=== PATIENT | female | born 1995 | race Caucasian/White ===

== ENCOUNTER 2020-04-27 22:00 | Observation (INO) | payer OTHER, SELFPAY ==
[2020-04-27 22:30] VITALS: BMI 19.5
[2020-04-27 22:36] VITALS: BP 106/63; PULSE 68
[2020-04-27 22:47] VITALS: TEMP 37.1
[2020-04-27 23:28] LABS: Add Urine Microscopic? YES; Appearance Urine Clear (Clear); Bacteria Urine Trace /hpf; Bilirubin Urine Negative (Negative); Blood Urine Negative (Negative); Color Urine Yellow (Yellow); Glucose Urine UA Negative (Negative); Ketones Urine Negative (Negative); Leukocyte Esterase Ur 1+ LEU/UL (NEGATIVE); Mucus Urine Rare /lpf; Nitrate Urine Negative (Negative); Protein Urine Negative (Negative); Specific Grav Ur 1.019 (1.001-1.035); Squamous Epithelial Cell Urine Many /hpf (Few); Urobilinogen Urine Negative mg/dL (<2.0)
--- NOTE | 2020-04-28 00:09 | OBADM ---
This patient, Chhaya Freeman, admitted to the OB room OB Post 117 for observation. Patient/family oriented to hospital policies and general routines including ID bracelet, bed and alarms, visiting hours, pain management, procedures, bathroom and other care routines, personal items, smoking policy, room service/diet, and visiting hours. Patient/Family are encouraged to report perceived risks to care and to ask questions if they do not understand what they are told or what they should do.
--- NOTE | 2020-05-09 08:20 | PM.OBTRLD ---
OB - Triage/Final Diagnosis Visit Information Reason for evaluation: threatened labor Evaluation Laboratory results: Laboratory Tests 04/27/20 23:18 Urine Color Yellow Urine Appearance Clear Urine pH 7.0 Ur Specific [place] 1.019 Urine Protein Negative Urine Glucose (UA) Negative Urine Ketones Negative Ur Blood (Man) Negative Urine Nitrate Negative Urine Bilirubin Negative Urine Urobilinogen Negative Ur Leukocyte Esterase 1+ H Urine RBC 3-5 H Urine WBC 10-15 H Ur Squamous Epith Cells Many H Urine Bacteria Trace Hyaline Casts 3-4 H Urine Mucus Rare
== END 2020-04-27 23:15 | disposition home or self-care (01) ==
PROVIDERS: Admitting Provider Obstetrics & Gynecology; PCP Physician Assistant; Visit Provider Obstetrics & Gynecology
DX: O47.9 False labor, unspecified (principal); Z3A.00 Weeks of gestation of pregnancy not specified
CPT/HCPCS: 81001; 87077; 87086; 87088; G0378; G0379

== ENCOUNTER 2020-04-29 10:21 | Observation (INO) | payer OTHER, SELFPAY ==
--- NOTE | 2020-04-29 10:21 | OBADM ---
This patient, Chhaya Freeman, admitted to the OB room OB Post 115 for observation. Patient/family oriented to hospital policies and general routines including ID bracelet, bed and alarms, visiting hours, pain management, procedures, bathroom and other care routines, personal items, smoking policy, room service/diet, and visiting hours. Patient/Family are encouraged to report perceived risks to care and to ask questions if they do not understand what they are told or what they should do.
[2020-04-29 10:45] VITALS: BP 107/66; PULSE 79
[2020-04-29 11:00] VITALS: BP 96/58; PULSE 72
[2020-04-29 11:15] VITALS: BP 96/53; PULSE 75
[2020-04-29 11:30] VITALS: BP 116/60; PULSE 89
[2020-04-29 11:45] VITALS: BP 94/56; PULSE 74
[2020-04-29 12:43] VITALS: BMI 19.7
--- NOTE | 2020-05-09 08:18 | PM.OBTRLD ---
OB - Triage/Final Diagnosis Visit Information Reason for evaluation: threatened labor
== END 2020-04-29 12:05 | disposition home or self-care (01) ==
PROVIDERS: Admitting Provider Obstetrics & Gynecology; PCP Physician Assistant; Visit Provider Obstetrics & Gynecology
DX: O47.9 False labor, unspecified (principal); Z3A.00 Weeks of gestation of pregnancy not specified
CPT/HCPCS: G0378; G0379

== ENCOUNTER 2020-05-19 08:32 | Outpatient (RCR) | payer OTHER, SELFPAY ==
[2020-05-19 09:57] LABS: Hematocrit 31.2 % (37.0-47.0); Hemoglobin 10.8 g/dL (12.0-15.0)
[2020-05-19 10:11] LABS: Glucose 1 Hour PP 50gm Dose 63 mg/dL
[2020-05-19 10:52] LABS: HIV 1/2 Ab P24 Ag Result Negative (Negative)
[2020-05-19] MEDS: RHO(D) IMMUNE GLOBULIN 300 MCG SYRINGE IM (13:26)
[2020-05-21 07:34] LABS: CMV IgG Antibody <0.60 U/mL (<0.60)
== END 2020-08-17 23:59 | disposition home or self-care (01) ==
LOC: ANHLAB 08:32
PROVIDERS: PCP Physician Assistant; Visit Provider Obstetrics & Gynecology
DX: Z29.13 Encounter for prophylactic Rho(D) immune globulin (principal); Z11.4 Encounter for screening for human immunodeficiency virus [HIV]; O36.0990 Maternal care for other rhesus isoimmunization, unspecified trimester, not applicable or unspecified; Z3A.00 Weeks of gestation of pregnancy not specified
CPT/HCPCS: 36415; 82947; 85014; 85018; 85461; 86644; 86703; 86747; 90384; 96372; G0432; J2790

== ENCOUNTER 2020-05-27 18:02 | Observation (INO) | payer OTHER, SELFPAY ==
[2020-05-27 18:24] VITALS: BP 96/59; PULSE 74
[2020-05-27 18:58] LABS: Add Urine Microscopic? YES; Appearance Urine Clear (Clear); Bacteria Urine Trace /hpf; Bilirubin Urine Negative (Negative); Blood Urine Negative (Negative); Color Urine Yellow (Yellow); Glucose Urine UA Negative (Negative); Ketones Urine Negative (Negative); Leukocyte Esterase Ur Trace LEU/UL (Negative); Mucus Urine Rare /lpf; Nitrate Urine Negative (Negative); Protein Urine Negative (Negative); RBC Urine 0-2 /hpf (0-2); Specific Grav Ur 1.013 (1.001-1.035); Squamous Epithelial Cell Urine Few /hpf (Few); Urobilinogen Urine Negative mg/dL (<2.0)
[2020-05-27] MEDS: ACETAMINOPHEN 500 MG TABLET 1000 MG PO (20:28)
[2020-05-27] MEDS: TERBUTALINE SULFATE 1 MG/ML VIAL 0.25 MG SUB-Q (21:07)
[2020-05-27 23:32] VITALS: BMI 19.9
--- NOTE | 2020-06-03 11:13 | PM.OBTRLD ---
OB - Triage/Final Diagnosis Evaluation Laboratory results: Laboratory Tests 05/27/20 18:41 Urine Color Yellow Urine Appearance Clear Urine pH 6.0 Ur Specific [place] 1.013 Urine Protein Negative Urine Glucose (UA) Negative Urine Ketones Negative Ur Blood (Man) Negative Urine Nitrate Negative Urine Bilirubin Negative Urine Urobilinogen Negative Leukocyte Esterase Rfl Trace H Urine RBC 0-2 Urine WBC 4-6 H Ur Squamous Epith Cells Few Urine Bacteria Trace Urine Mucus Rare Final Diagnosis (1) contractions: Code(s): O47.9 - False labor, unspecified Status: Acute Plan: Pt was noted to have contractions; given PO hydration initially but they continued and was given one dose of Terbutaline sq and the contractions stopped. heart tones were reassuring and pt denied pain and was d/c'ed home.
== END 2020-05-27 23:15 | disposition home or self-care (01) ==
PROVIDERS: Admitting Provider Obstetrics & Gynecology; PCP Physician Assistant; Visit Provider Obstetrics & Gynecology
DX: O47.03 False labor before 37 completed weeks of gestation, third trimester (principal); Z3A.29 29 weeks gestation of pregnancy
CPT/HCPCS: 81001; 96372; A9270; G0378; G0379; J3105

== ENCOUNTER 2020-06-04 12:07 | Outpatient (RCR) | payer OTHER, SELFPAY ==
[2020-06-04 13:21] VITALS: BP 102/59; PULSE 92
== END 2020-07-30 07:54 | disposition home or self-care (01) ==
LOC: ANHOBOP 12:07
PROVIDERS: PCP Physician Assistant; Visit Provider Obstetrics & Gynecology
DX: O99.89 Other specified diseases and conditions complicating pregnancy, childbirth and the puerperium (principal); T14.90XD Injury, unspecified, subsequent encounter; Z3A.30 30 weeks gestation of pregnancy; W19.XXXD Unspecified fall, subsequent encounter
CPT/HCPCS: 59025

== ENCOUNTER 2020-07-03 17:11 | Observation (INO) | payer OTHER, SELFPAY ==
[2020-07-03 17:41] VITALS: BMI 20.5
--- NOTE | 2020-07-03 17:43 | LDADM ---
This patient, Chhaya Freeman, was admitted to OB Post 115 on 07/03/20 at 17:11. Plans for labor, pain management and were discussed with patient. Patient/family oriented to hospital policies and general routines including ID bracelet, bed and alarms, visiting hours, pain management, procedures, bathroom and other care routines, personal items, smoking policy, room service/diet and guest tray routines, security routines, and visiting hours. Patient/Family are encouraged to report perceived risks to care and to ask questions if they do not understand what they are told or what they should do. See OBIX for further documentation.
[2020-07-03 17:48] VITALS: BP 109/72; PULSE 78
[2020-07-03 17:59] LABS: Add Urine Microscopic? YES; Appearance Urine Cloudy (Clear); Bacteria Urine Trace /hpf; Bilirubin Urine Negative (Negative); Blood Urine Negative (Negative); Color Urine Yellow (Yellow); Glucose Urine UA Negative (Negative); Ketones Urine Negative (Negative); Leukocyte Esterase Ur 2+ LEU/UL (Negative); Mucus Urine Rare /lpf; Nitrate Urine Negative (Negative); Protein Urine 1+ mg/dL (Negative); Specific Grav Ur 1.017 (1.001-1.035); Squamous Epithelial Cell Urine Few /hpf (Few); Urobilinogen Urine Negative mg/dL (<2.0); WBC Urine 51-75 /hpf
[2020-07-03 18:01] VITALS: BP 111/55; PULSE 86
[2020-07-03 18:16] VITALS: BP 94/73
[2020-07-03 18:30] VITALS: BP 112/82; PULSE 87
--- NOTE | 2020-07-05 08:42 | PM.OBTRLD ---
OB - Triage/Final Diagnosis Visit Information Reason for evaluation: threatened labor and other (urinary tract infection) Evaluation Laboratory results: Laboratory Tests 07/03/20 17:35 Urine Color Yellow Urine Appearance Cloudy H Urine pH 6.0 Ur Specific [place] 1.017 Urine Protein 1+ H Urine Glucose (UA) Negative Urine Ketones Negative Ur Blood (Man) Negative Urine Nitrate Negative Urine Bilirubin Negative Urine Urobilinogen Negative Leukocyte Esterase Rfl 2+ H Urine RBC 3-5 H Urine WBC 51-75 H Ur Squamous Epith Cells Few Urine Bacteria Trace Urine Mucus Rare
== END 2020-07-03 18:45 | disposition home or self-care (01) ==
PROVIDERS: Admitting Provider Obstetrics & Gynecology; PCP Physician Assistant; Visit Provider Obstetrics & Gynecology
DX: O47.9 False labor, unspecified (principal); O23.40 Unspecified infection of urinary tract in pregnancy, unspecified trimester; Z3A.00 Weeks of gestation of pregnancy not specified
CPT/HCPCS: 81001; 87086; G0378; G0379

== ENCOUNTER 2020-07-04 03:55 | Observation (INO) | payer OTHER, SELFPAY ==
[2020-07-04 04:00] VITALS: BMI 20.7
[2020-07-04] MEDS: DEXTROSE 5%/LACTATED RINGERS 1,000 ML 125 ML IV CONT (05:39)
[2020-07-04] MEDS: TERBUTALINE SULFATE 1 MG/ML VIAL 0.25 MG SUB-Q (05:40)
--- NOTE | 2020-07-04 07:19 | PM.OBTRLD ---
OB - Triage/Final Diagnosis Visit Information Reason for evaluation: threatened labor and other (UTI)
== END 2020-07-04 10:30 | disposition home or self-care (01) ==
PROVIDERS: Admitting Provider Obstetrics & Gynecology; PCP Physician Assistant; Visit Provider Obstetrics & Gynecology
DX: O47.9 False labor, unspecified (principal); O23.40 Unspecified infection of urinary tract in pregnancy, unspecified trimester; Z3A.00 Weeks of gestation of pregnancy not specified
CPT/HCPCS: 96361; 96372; 96374; G0378; G0379; J0690; J3105; J7121

== ENCOUNTER 2020-07-14 13:54 | Outpatient (CLI) | payer OTHER, SELFPAY ==
--- NOTE | ~2020-07-14 | US_ITS ---
EXAMINATION: US OB follow up DATE: 07/14/2020 14:40 INDICATION: Third trimester . Assess size and dating of . TECHNIQUE: Real-time ultrasound of the pelvis was performed. The interpreting radiologist was not pre sent for the study. COMPARISON: None. FINDINGS: There is a single living fetus in vertex presentation. The placenta is anterior. heart rate is 135 beats per minute (bpm). The amniotic fluid index is 15.6 cm, which is normal (5th%-95%: 7.7-24. 9 cm at 36 weeks estimated gestational age). The following biometric data were obtained: BPD: 8.9 cm -> 36 weeks 1 days Head circumference: 31.7 cm -> 35 weeks 4 days Abdominal circumference: 32.2 cm -> 36 weeks 1 days Femur length: 6.6 cm -> 34 weeks 1 days These measurements are concordant. Head circumference to abdominal circumference ratio: 0.99 (normal range 0.93-1.09). Estimated weight: 2705 g (+/-) 406 g. or 5 lbs. 15 oz. (+/-) 14 oz. IMPRESSION: 1. Single living fetus in vertex presentation with heart rate of 135 bpm. 2. Gestational age by ultrasound of 35 weeks 4 day(s) +/- 2 week(s) 3 day(s) with ultrasound estimate d date of delivery (VALARIE) of 08/14/2020. Estimated weight is 32nd percentile by Hadlock criteria when 08/09/2020 is used as the VALARIE. Please correlate with clinical information or earlier ultrasound s for most accurate VALARIE. 3. Normal amniotic fluid index of 15.6 cm. Reviewed, dictated and finalized at location A. IMPRESSION: 1. Single living fetus in vertex presentation with heart rate of 135 bpm. 2. Gestational age by ultrasound of 35 weeks 4 day(s) +/- 2 week(s) 3 day(s) wi th ultrasound estimated date of delivery (VALARIE) of 08/14/2020. Estimated w eight is 32nd percentile by Hadlock criteria when 08/09/2020 is used as the VALARIE . Please correlate with clinical information or earlier ultrasounds for most ac curate VALARIE. 3. Normal amniotic fluid index of 15.6 cm.
== END 2020-07-14 13:55 | disposition home or self-care (01) ==
PROVIDERS: PCP Physician Assistant; Visit Provider Obstetrics & Gynecology
DX: Z36.9 Encounter for antenatal screening, unspecified (principal); Z3A.35 35 weeks gestation of pregnancy
CPT/HCPCS: 76816

== ENCOUNTER 2020-07-20 06:23 | Observation (INO) | payer OTHER, SELFPAY ==
--- NOTE | 2020-07-20 06:23 | OBADM ---
This patient, Chhaya Freeman, admitted to the OB room Labor/Delivery/Recovery 104 for observation. Patient/family oriented to hospital policies and general routines including ID bracelet, bed and alarms, visiting hours, pain management, procedures, bathroom and other care routines, personal items, smoking policy, room service/diet, and visiting hours. Patient/Family are encouraged to report perceived risks to care and to ask questions if they do not understand what they are told or what they should do.
[2020-07-20 06:40] VITALS: TEMP 36.9
[2020-07-20 07:00] VITALS: BMI 20.9
[2020-07-20] MEDS: ONDANSETRON HCL ODT 4 MG TABLET PO (08:13)
--- NOTE | 2020-07-22 11:51 | PM.OBTRLD ---
OB - Triage/Final Diagnosis Final Diagnosis (1) False labor: Code(s): O47.9 - False labor, unspecified Status: Acute
== END 2020-07-20 08:15 | disposition home or self-care (01) ==
PROVIDERS: Admitting Provider Obstetrics & Gynecology; PCP Physician Assistant; Visit Provider Obstetrics & Gynecology
DX: O47.9 False labor, unspecified (principal); Z3A.00 Weeks of gestation of pregnancy not specified
CPT/HCPCS: 84112; A9270; G0378; G0379

== ENCOUNTER 2020-07-23 19:24 | Observation (INO) | payer OTHER, SELFPAY ==
--- NOTE | 2020-07-24 08:32 | PM.OBTRLD ---
OB - Triage/Final Diagnosis Final Diagnosis (1) False labor: Code(s): O47.9 - False labor, unspecified Status: Acute
== END 2020-07-23 22:55 | disposition home or self-care (01) ==
PROVIDERS: Admitting Provider Obstetrics & Gynecology; PCP Physician Assistant; Visit Provider Obstetrics & Gynecology
DX: O47.9 False labor, unspecified (principal); Z3A.00 Weeks of gestation of pregnancy not specified
CPT/HCPCS: G0378; G0379

== ENCOUNTER 2020-07-24 11:52 | Observation (INO) | payer OTHER, SELFPAY ==
[2020-07-24 13:27] VITALS: BP 100/67; PULSE 88; RESP 16; TEMP 36.6
--- NOTE | 2020-07-24 13:34 | PM.OBTRLD ---
OB - Triage/Final Diagnosis Final Diagnosis (1) False labor: Code(s): O47.9 - False labor, unspecified Status: Acute
[2020-07-24 15:34] VITALS: BMI 20.7
== END 2020-07-24 13:44 | disposition home or self-care (01) ==
LOC: ANHLDR 07-28 14:58
PROVIDERS: Admitting Provider Obstetrics & Gynecology; PCP Physician Assistant; Visit Provider Obstetrics & Gynecology
DX: O47.1 False labor at or after 37 completed weeks of gestation (principal); Z3A.37 37 weeks gestation of pregnancy
CPT/HCPCS: G0378; G0379

== ENCOUNTER 2020-07-29 11:30 | Outpatient (CLI) | payer OTHER, SELFPAY ==
--- NOTE | 2020-07-29 11:30 | PC.NURSE ---
Pt came in for possible leaking of fluid. Pt states she was 3cm in the office yesterday.
[2020-07-29 12:45] VITALS: BP 109/59; PULSE 92
--- NOTE | 2020-07-29 12:51 | PC.NURSE ---
5444- called,informed pt came in for possible leaking fluid. ROM plus negative, NST reactive. Orders received to discharge pt home
== END 2020-07-29 12:47 | disposition home or self-care (01) ==
LOC: ANHOBOP 12:34 → ANHLDR 12:35
PROVIDERS: PCP Physician Assistant; Visit Provider Obstetrics & Gynecology
DX: Z34.93 Encounter for supervision of normal pregnancy, unspecified, third trimester (principal); Z3A.38 38 weeks gestation of pregnancy
CPT/HCPCS: 59025; 84112; 99199

== ENCOUNTER 2020-07-29 18:29 | Inpatient (IN) | payer OTHER, SELFPAY ==
[2020-07-29] VITALS (92 sets, daily range): BP systolic 87–127; BP diastolic 45–83; PULSE 47–212; TEMP 36.8–36.9; O2SAT 87–100; BMI 21.0
[2020-07-29] MEDS: LACTATED RINGERS 1,000 ML 125 ML IV CONT ×2 (19:15→19:53)
[2020-07-29 19:16] LABS: Basophils Absolute Auto 0.1 K/mm3 (0.0-0.1); Basophils Percent Auto 0.4 % (0.2-1.2); Eosinophils Absolute Auto 0.1 K/mm3 (0-0.3); Eosinophils Percent Auto 0.4 % (0-4.4); Hematocrit 39.5 % (37.0-47.0); Hemoglobin 13.4 g/dL (12.0-15.0); Immature Granulocyte Percent A 0.7 % (0-0.5); Lymphocytes Absolute Auto 1.99 K/mm3 (0.9-3.2); Lymphocytes Percent Auto 14.8 % (18.3-44.2); Mean Corpuscular HGB Conc 33.9 g/dl (32-36); Mean Corpuscular Hemoglobin 30.3 pg (26-34); Mean Corpuscular Volume 89.4 fl (80-100); Mean Platelet Volume 12.8 fl (7.4-10.4); Monocytes Absolute Auto 0.8 K/mm3 (0.1-0.6); Neutrophils Absolute Auto 10.5 K/mm3 (1.3-6.7); Neutrophils Percent Auto 77.7 % (45.5-73.1); Platelet Count Result 204 k/mm3 (150-375); Red Blood Count 4.42 M/mm3 (4.2-5.4); Red Cell Distribution Width 12.5 % (11.5-14.5); White Blood Count 13.5 K/mm3 (4.5-10.0)
--- NOTE | 2020-07-29 19:42 | P.PNAN_ITS ---
Anes - Initial Pre Proc Eval Procedure: labor epidural Date/Time: 07/29/20 19:42 Surgeon: Brandon Garcia MD Pre Op Diagnosis: labor pain Pre Op Diagnosis: Contractions Patient Data Age: 25 Gender: F Height: 1.6 m Weight: 54 kg Last Vital Signs Pulse 65 07/29/20 19:41 BP 100/58 L 07/29/20 19:41 Pulse Ox 100 07/29/20 19:39 Allergies Allergy/AdvReac Type Severity Reaction Status Date / Time No Known Allergies Allergy Mild Verified 07/14/20 12:42 Home Medications Medication Instructions Recorded Confirmed Type khrpucvygd-waypbvmplglyw-neut cap 07/04/20 History Gummies 2 tablet PO 07/14/20 History Laboratory Tests 07/29/20 07/29/20 19:09 19:09 WBC 13.5 K/mm3 H K/mm3 (4.5-10.0) RBC 4.42 M/mm3 M/mm3 (4.2-5.4) Hgb 13.4 g/dL g/dL (12.0-15.0) Hct 39.5 % % (37.0-47.0) MCV 89.4 fl fl (80-100) MCH 30.3 pg pg (26-34) MCHC 33.9 g/dl g/dl (32-36) RDW 12.5 % % (11.5-14.5) Plt Count 204 k/mm3 k/mm3 (150-375) MPV 12.8 fl H fl (7.4-10.4) Immature Gran % (Auto) 0.7 % H % (0-0.5) Neut % (Auto) 77.7 % H % (45.5-73.1) Lymph % (Auto) 14.8 % L % (18.3-44.2) [place] % (Auto) 6.0 % % (2.6-8.5) Eos % (Auto) 0.4 % % (0-4.4) Baso % (Auto) 0.4 % % (0.2-1.2) Lymph # (Auto) 1.99 K/mm3 K/mm3 (0.9-3.2) [place] # (Auto) 0.8 K/mm3 H K/mm3 (0.1-0.6) Eos # (Auto) 0.1 K/mm3 K/mm3 (0-0.3) Baso # (Auto) 0.1 K/mm3 K/mm3 (0.0-0.1) Abs Immat Gran (auto) 0.10 K/mm3 H K/mm3 (0.00-0.031) Absolute Neuts (auto) 10.5 K/mm3 H K/mm3 (1.3-6.7) Absolute Nucleated RBC 0.0 K/mm3 K/mm3 (0.0-0.012) Nucleated RBC % 0.0 % % (0.0-0.2) RPR Pending Patient hx anesthesia problems: none Family hx anesthesia problems: none [facility] Past Medical History Medical History (Updated 07/29/20 @ 19:42 by Jhonathan White DO) ADHD Bipolar disorder OCD (obsessive compulsive disorder) Family History Family History (Updated 07/14/20 @ 12:59 by Kelsi Santiago RN) Sibling Autism disorder Duplication of chromosome 16p Social History Social History Substance use: never Spiritual care concerns: No Anes - Eval Final PreProcedure Day of Procedure 07/29/20 19:42 Patient weight: normal ASA classification: II Anesthesia type and monitoring: regional epidural Informed Consent: The patient's anesthetic plan and its attendant risks and benefits were discussed with the patient/family/POA. Questions were solicited and answers provided to the satisfaction of the patient/family/POA.
[2020-07-29] MEDS: FAMOTIDINE 20 MG/2 ML VIAL IV PUSH (21:58)
[2020-07-29] MEDS: ONDANSETRON INJ 4 MG/2 ML VIAL IV PUSH (22:24)
[2020-07-30] VITALS (52 sets, daily range): BP systolic 93–126; BP diastolic 56–98; PULSE 51–132; RESP 16–18; TEMP 36.3–37.3; O2SAT 89–100
[2020-07-30] MEDS: LACTATED RINGERS 1,000 ML 125 ML IV CONT (00:10)
[2020-07-30] MEDS: OXYTOCIN 30 UNITS/NS 500 ML 30 UNITS/500 ML BAG 999 UNITS IV CONT (02:32)
--- NOTE | 2020-07-30 02:43 | PM.OBPRVD ---
OB - Delivery Note Procedure Route of delivery: Laceration description: Vaginal - 1st Degree Delivery repair: chromic Specimen: No Estimated blood loss (mL): 300 Anesthesia type: Epidural Disposition: floor Narrative: Patient prepped and draped in usual manner for this procedure. Maternal expulsive efforts readily delivered vertex with the rest of the baby readily delivery after. Cord is clamped and cut and placenta delivered spontaneously with uterus well contracted. Small vaginal wall laceration was noted which was rendered hemostatic and approximated using 2 0 chromic [id number] suture. This point seizure was considered terminated with immediate postop condition of mother and baby both excellent. Baby Weeks of gestation at delivery: 38 Infant gender: Male Weight (pounds): 6 Weight (ounces): 10 score one minute: 8 score five minutes: 9
--- NOTE | 2020-07-30 02:45 | WPDHPUPDATE1 ---
History and Physical Update Update Date/Time: 07/30/20 02:45 History and Physical has been reviewed, including an updated exam of the patient. There are NO changes in the patient's condition. Risks, benefits, and alternatives have been discussed and questions answered. Patient agrees to proceed with procedure.
--- NOTE | 2020-07-30 02:45 | WPDOBADMIT ---
Obstetrics - Admit Note Admission Note: record reviewed. No pertinent additions to the history and/or any subsequent changes in the physical findings that are not consistent with the expected course of the were found. Additions to the history and/or subsequent changes in the physical findings follow. None.
[2020-07-30] MEDS: OXYTOCIN 30 UNITS/NS 500 ML 30 UNITS/500 ML BAG 125 UNITS IV CONT (03:06)
[2020-07-30] MEDS: WITCH HAZEL 40 PADS 1 PAD TOPICAL (04:45)
[2020-07-30] MEDS: BENZOCAINE 20% AER SPR (*SP) 56 GM CAN 1 SPRAY TOPICAL (04:45)
[2020-07-30] MEDS: IBUPROFEN 600 MG TABLET PO ×3 (05:06→17:58)
--- NOTE | 2020-07-30 05:42 | PC.NURSE ---
This patient, Chhaya Freeman, was received from Labor and Delivery on 07/30/20 at 0508. Personal belongings list checked and signed. Patient/family oriented to unit policies and routines
--- NOTE | 2020-07-30 07:21 | WPDANLDPN2 ---
Anes-Prog Note L&D Date/Time: 07/30/20 07:21 Comfortable throughout: labor and delivery Neuraxial method: epidural Epidural/Spinal procedure site: clean & non-tender Neuro status: Neuro function grossly intact. Cardiovascular status: normal Respiratory status: normal Airway patency: baseline Mental status: baseline Post-Op hydration status: normal Vital Signs: Last Vital Signs Temp 37.3 C 07/30/20 03:30 Pulse 54 L 07/30/20 04:31 BP 113/76 07/30/20 04:31 Pulse Ox 100 07/30/20 02:26 Pain score (VAS): 0 I/O: Intake & Output 07/29/20 07/29/20 07/30/20 15:59 23:59 07:59 Intake Total 1000 1000 Output Total 130 Balance 1000 870 Post-procedural complaints: none Patient feedback: Patient satisfied with anesthetic care.
[2020-07-30 07:24] LABS: Rapid Plasma Reagin Non-Reactive (NonReactive)
--- NOTE | 2020-07-30 07:30 | PC.NURSE ---
Consulted with patient, mother reports infant has been eagerly latching. Reviewed feeding cues, frequencies, duration of feedings, feeding elimination flow sheet, and signs of adequate intake. Demonstrated stimulation techniques to wake for feeding. Assisted with infant to breast. Reviewed positioning/alignment in cross cradle, holding breast in U hold and guided asymmetrical latch on. was able to latch correctly with first attempt. Infant nursed eagerly, with steady draws and frequent swallowing noted. Reviewed signs of a correct latch, effective nursing and suck swallow ratio. Infant was able to maintain latch without discomfort to mother. Nipple care reviewed. Suggested mother stimulate while feeding to keep awake and nursing effectively for increased intake and to assist with maintaining deep latch. Demonstrated how to adjust latch more deeply while feeding. Instructed mother to call out for RN assistance if she is unable to latch infant for feeding or she has discomfort with nursing. Instructed feeding should be initiated three hours from start of last feeding or if feeding cues are noted before. Mother voiced understanding of information shared.
--- NOTE | 2020-07-30 07:30 | PC.NURSE ---
Pt introductions made and plan of care discussed per post , pain management, breast feeding, daily care activities. PT verbalized understanding of such care.
[2020-07-30] MEDS: ACETAMINOPHEN 325 MG TABLET 650 MG PO ×3 (08:43→17:57)
[2020-07-30] MEDS: DOCUSATE SODIUM 100 MG CAPSULE PO ×2 (08:44→17:59)
[2020-07-30] MEDS: LANOLIN (LANSINOH) 7.5 GM CREAM 1 APPLIC TOPICAL (08:45)
[2020-07-30] MEDS: PANTOPRAZOLE SOD SESQUIHYDRATE 20 MG TAB PO (11:40)
[2020-07-30] MEDS: TETANUS,DIPHTHERIA,AC PERTUSSIS ADULT (0.5 ML) BOOSTRIX IM (11:59)
--- NOTE | 2020-07-30 13:31 | P.DS_ITS ---
DS: Admitting Diagnosis Admitting Diagnosis Admitting Diagnosis: Contractions OB - DS: Summary OB Procedures : None OB Procedures Intrapartum: Spontaneous Vag Delivery OB Procedures: : None Time Spent with Patient Time attestation: Total time spent providing and/or coordinating discharge services: DS: Data Data Completed and Pending Labs on day of discharge: Labs from last 24 hours 07/29/20 07/29/20 07/29/20 19:09 19:09 19:09 WBC 13.5 H RBC 4.42 Hgb 13.4 Hct 39.5 MCV 89.4 MCH 30.3 MCHC 33.9 RDW 12.5 Plt Count 204 MPV 12.8 H Immature Gran % (Auto) 0.7 H Neut % (Auto) 77.7 H Lymph % (Auto) 14.8 L [place] % (Auto) 6.0 Eos % (Auto) 0.4 Baso % (Auto) 0.4 Lymph # (Auto) 1.99 [place] # (Auto) 0.8 H Eos # (Auto) 0.1 Baso # (Auto) 0.1 Abs Immat Gran (auto) 0.10 H Absolute Neuts (auto) 10.5 H Absolute Nucleated RBC 0.0 Nucleated RBC % 0.0 RPR Non-reactive Blood Type A Negative Antibody Screen Negative Discharge Plan Discharge Discharging Clinician: Brandon Garcia Patient Disposition: Home, Self-Care Activity: as tolerated Diet: as tolerated Patient Instructions: Antibiotic Form Stand Alone Forms: General Discharge Information Follow-up/Referrals: Brandon Garcia MD [Physician] - 2 Weeks Discharge Medications: Continued Gummies 400 mcg-35 mg- 25 mg-5 mg Tablet,Chewable 2 tablet PO RF: 0 Prilosec 10 mg Susp,Delayed Release For Recon 10 mg PO DAILY RF: 0 oqcsvahsbb-pkenwtwszrajc-tojv 50-300-40 mg capsule RF: 0 Date of admission: 07/29/20 18:29 Primary Care Provider: MineshAngus Admitting Provider: Brandon Garcia Attending physician on admission: Brandon Garcia Condition: Stable
[2020-07-31] MEDS: ACETAMINOPHEN 325 MG TABLET 650 MG PO (01:30)
[2020-07-31] MEDS: IBUPROFEN 600 MG TABLET PO ×2 (01:30→08:00)
[2020-07-31 06:02] LABS: Hematocrit 29.8 % (37.0-47.0); Hemoglobin 9.6 g/dL (12.0-15.0)
[2020-07-31 07:55] VITALS: BP 122/73; PULSE 52; RESP 16; TEMP 36.3; O2SAT 100
[2020-07-31] MEDS: DOCUSATE SODIUM 100 MG CAPSULE PO (07:59)
[2020-07-31] MEDS: PANTOPRAZOLE SOD SESQUIHYDRATE 20 MG TAB PO (08:00)
[2020-07-31] MEDS: POLYSACCHARIDE IRON COMPLEX 150 MG CAPSULE PO (08:00)
[2020-07-31 08:30] VITALS: PULSE 52; RESP 16; O2SAT 100
--- NOTE | 2020-07-31 10:47 | PC.NURSE ---
Patient viewed the discharge video Mother & Baby Care, The First Two Weeks . Patient was given the opportunity and encouraged to ask questions. Patient verbalized understanding of information shared and has been given the mother/baby guide for home reference.
--- NOTE | 2020-07-31 11:30 | PC.NURSE ---
Observed mother is able to independently latch with appropriate positioning/alignment. She denies any nipple discomfort, is feeding as required and waking infant to feed if needed. has had at least 8 effective feedings in the past 24 hours, and is currently meeting outcomes for weight, output, jaundice and feeding frequencies. Mother states she feels confident to continue effective at home. Mother believes her milk is transitioning in. Reviewed softening before feeding. Reviewed transition to breast milk, signs of adequate intake, and engorgement/relief. Instructed to call ICP if intake/output less than required. Reviewed regular medications mother is taking. Information provided per Vashti. Reviewed community resources on the [facility] website and in the Mom/Baby guide. Information on outpatient services provided. Mother has no further questions at this time.
[2020-08-01 12:23] VITALS: BP 93/54; PULSE 55; RESP 14; TEMP 37.1; O2SAT 100
--- NOTE | 2020-08-04 07:11 | PM.OBDSVD ---
DS: Admitting Diagnosis Admitting Diagnosis Admitting Diagnosis: Contractions OB - DS: Summary OB Procedures : None OB Procedures Intrapartum: Spontaneous Vag Delivery OB Procedures: : None Time Spent with Patient Time attestation: Total time spent providing and/or coordinating discharge services: Discharge Plan Discharge Consulting providers: Jhonathan White Discharging Clinician: Brandon Garcia Patient Disposition: Home, Self-Care Activity: as tolerated Diet: as tolerated Discharge Instructions: Education: Mom and Baby Guide Given to: Mother Follow-Up: Call your delivering provider's office for an appointment to be seen in: 2 Weeks Mom and baby should come to the [facility] for the follow-up appointment. Appointment Date/Time: Saturday, August 01, 2020 at 11:30 a.m. What to expect at your follow-up visit: Blood Pressure Check Physical Assessment Call [phone] if you are unable to keep your appointment time. BREAST CARE: * Wear a snug supportive bra. * For engorgement discomfort: Breast Feeding: * Apply warm moist washcloths * Express milk as needed to relieve engorgement * Wear loose clothing * For sore nipples: * Identify correct latch-on * Apply warm moist washcloths before and after nursing * Air dry nipples after nursing * May apply Lansinoh cream to nipples EPISIOTOMY/PERINEAL CARE: * Until bleeding stops, use your fanta bottle after urinating * Change your pad frequently throughout the day * You may take sitz baths several times a day (fill your bathtub with warm water and soak for 20 minutes.) Do NOT bathe in the water * No tub baths until seen by your physician - You may shower ACTIVITY: * Rest as much as possible. * Do not exercise or lift anything heavier than your baby (such as laundry or other children.) * Avoid stairs or driving as much as possible. * Do not put anything into the vagina. No douching, tampons, or sexual activity until seen by physician. NOTIFY PHYSICIAN IF YOU HAVE ANY QUESTIONS OR IF ANY OF THE FOLLOWING SYMPTOMS OCCUR: * If your perineum becomes red, swollen, or more painful than what you have experienced in the hospital. * If your vaginal bleeding becomes foul smelling. * If your vaginal bleeding becomes more heavy than a period or if your bleeding changes from pink to bright red. However, you may pass an occasional walnut-sized clot once or twice for the first week . * If you experience a sharp, shooting pain in you calves. * If you discover a hard, reddened area on your breast or if you experience flu-like symptoms. DIET: * Eat regular, well-balanced meals. * Drink plenty of fluids daily. For , drink to thirst. Stand Alone Forms: General Discharge Information Follow-up/Referrals: Brandon Garcia MD [Physician] - 2 Weeks Discharge Medications: Continued Gummies 400 mcg-35 mg- 25 mg-5 mg Tablet,Chewable 2 tablet PO RF: 0 Prilosec 10 mg Susp,Delayed Release For Recon 10 mg PO DAILY RF: 0 vftsczolch-zfrwppvepdkbm-pnau 50-300-40 mg capsule RF: 0 Date of admission: 07/29/20 18:29 Primary Care Provider: NickAngus Admitting Provider: Brandon Garcia Attending physician on admission: Brandon Garcia Condition: Stable
== END 2020-07-31 13:23 | disposition home or self-care (01) | DRG 560 ==
LOC: ANHLDR 18:59 → ANHOB2 07-30 05:29
PROVIDERS: Admitting Provider Obstetrics & Gynecology; PCP Physician Assistant; Visit Provider Obstetrics & Gynecology
DX: O99.344 Other mental disorders complicating childbirth (principal); Z37.0 Single live birth; Z3A.38 38 weeks gestation of pregnancy; F31.9 Bipolar disorder, unspecified; F98.8 Other specified behavioral and emotional disorders with onset usually occurring in childhood and adolescence; F42.9 Obsessive-compulsive disorder, unspecified; O70.0 First degree perineal laceration during delivery
CPT/HCPCS: 36415; 59025; 84112; 85014; 85018; 85025; 86592; 86850; 86900; 86901; 90715; A9270; J2405; J2590; J2795; J7120

== ENCOUNTER 2021-04-07 12:00 | Outpatient (CLI) | payer OTHER, SELFPAY ==
[2021-04-07 12:50] LABS: Hematocrit 42.9 % (37.0-47.0); Hemoglobin 14.1 g/dL (12.0-15.0); Mean Corpuscular HGB Conc 32.9 g/dl (32-36); Mean Corpuscular Hemoglobin 29.6 pg (26-34); Mean Corpuscular Volume 89.9 fl (80-100); Mean Platelet Volume 10.8 fl (7.4-10.4); Platelet Count Result 234 k/mm3 (150-375); Red Blood Count 4.77 M/mm3 (4.2-5.4); Red Cell Distribution Width 12.1 % (11.5-14.5); White Blood Count 9.6 K/mm3 (4.5-10.0)
[2021-04-07 13:42] LABS: HIV 1/2 Ab P24 Ag Result Negative (Negative)
[2021-04-07 13:58] LABS: Hepatitis B Surface Antigen Negative (Negative); Rubella IgG Antibody 18.2 IU/ML
[2021-04-08 12:44] LABS: Rapid Plasma Reagin Non-Reactive (NonReactive)
[2021-04-10 15:45] LABS: CMV IgG Antibody <0.60 U/mL (<0.60)
== END 2021-04-07 12:01 | disposition home or self-care (01) ==
LOC: ANHLAB 12:04
PROVIDERS: PCP Physician Assistant; Visit Provider Obstetrics & Gynecology
DX: N92.5 Other specified irregular menstruation (principal)
CPT/HCPCS: 36415; 84702; 85027; 86592; 86644; 86703; 86747; 86762; 86787; 86850; 86900; 86901; 87077; 87086; 87088; 87186; 87340; G0432

== ENCOUNTER 2021-07-17 12:23 | Outpatient (CLI) | payer OTHER, SELFPAY ==
--- NOTE | 2021-07-17 | ECG_ITS ---
Measurements Intervals [place] Rate: 78 P: 57 MN: 164 QRS: 69 QRSD: 97 T: 17 QT: 360 QTc: 412 Interpretive Statements SINUS RHYTHM WITH SINUS ARRHYTHMIA INCOMPLETE RIGHT BUNDLE BRANCH BLOCK BORDERLINE ECG Electronically Signed On 07-17-2021 12:53:06 CDT by Esteban Hidalgo D.O.
--- NOTE | 2021-07-17 | ECHO_ITS ---
Patient Info Name: Chhaya Freeman Age: 26 years : 1995 Gender: Female Ht: 63 in Wt: 104 lbs BSA: 1.44 m2 HR: 68 bpm BP: 88 / 59 mmHg Technical Quality: Good Exam Date: 07/17/2021 1:09 PM Exam Location: [facility] Patient Status: Outpatient Admit Date: 07/17/2021 Staff Ordering Physician: Annie Greco MD Log Handling Equipment Operator: Emilee Carreon RDCS Attending Provider: Annie Greco MD Referring Physician: Angus BURDICK; Exam Type: CA echo doppler color flow Study Info Indications - DIZZINESS Complete two-dimensional, color flow and Doppler transthoracic echocardiogram is performed. Summary 1. Complete two-dimensional, color flow and Doppler transthoracic echocardiogram is performed. 2. Left ventricular chamber dimension is normal. 3. Left ventricular systolic function is normal, estimated at 60-65%. 4. The left ventricular diastolic function is normal. 5. E/e' 6 is not elevated. 6. There is trace tricuspid valve regurgitation. 7. No pulmonary hypertension, estimated pulmonary arterial systolic pressure is 22 mmHg. Left Ventricle E/e' 6 is not elevated. Left ventricular chamber dimension is normal. Left ventricular systolic function is normal, estimated at 60-65%. The left ventricular diastolic function is normal. Right Ventricle Right ventricular chamber dimension is normal. Right ventricular systolic function is normal. Left Atria Left atrial chamber dimension is normal. Right Atria Right atrial chamber dimension is normal. Aortic Valve The aortic valve is trileaflet. There is no aortic valve stenosis. There is no aortic valve regurgitation. Pulmonic Valve There is no pulmonic regurgitation. Mitral Valve There is no mitral valve stenosis. There is no mitral valve regurgitation. Tricuspid Valve There is trace tricuspid valve regurgitation. No pulmonary hypertension, estimated pulmonary arterial systolic pressure is 22 mmHg. Pericardium/Pleural There is no pericardial effusion. Inferior Vena Cava Normal inferior vena cava with >50% collapse upon inspiration consistent with normal right atrial pressure, 5 mmHg. Aorta The aortic root size at the sinus of Valsalva is normal. Left Ventricular Outflow Tract Name Value Normal LVOT 2D LVOT Diameter 2.0 cm LVOT Doppler LVOT Peak Gradient 8 mmHg LVOT Mean Gradient 5 mmHg LVOT VTI 30 cm LVOT VTI/AV VTI Ratio 0.9 LVOT Stroke Volume 92 ml LVOT CO 18.5 l/min LVOT CI 12.8 l/min/m2 Pulmonic Valve Name Value Normal PV Doppler PV Peak Gradient 5 mmHg Mitral Valve
== END 2021-07-17 12:24 | disposition home or self-care (01) ==
PROVIDERS: PCP Physician Assistant; Visit Provider Obstetrics & Gynecology
DX: R42 Dizziness and giddiness (principal); I45.10 Unspecified right bundle-branch block
CPT/HCPCS: 93005; 93306

== ENCOUNTER 2021-09-08 21:39 | Observation (INO) | payer OTHER, SELFPAY ==
[2021-09-08 22:01] VITALS: BP 101/64; PULSE 92
[2021-09-08 22:22] LABS: Add Urine Microscopic? YES; Appearance Urine Cloudy (Clear); Bacteria Urine Trace /hpf; Bilirubin Urine Negative (Negative); Blood Urine Negative (Negative); Color Urine Yellow (Yellow); Glucose Urine UA Negative (Negative); Ketones Urine Negative (Negative); Leukocyte Esterase Ur Negative LEU/UL (NEGATIVE); Mucus Urine Rare /lpf; Nitrate Urine Negative (Negative); Protein Urine 1+ mg/dL (Negative); Specific Grav Ur 1.021 (1.001-1.035); Squamous Epithelial Cell Urine Moderate /hpf (Few); Urobilinogen Urine Negative mg/dL (<2.0)
[2021-09-08 22:30] VITALS: BMI 18.9
--- NOTE | 2021-09-08 23:37 | OBADM ---
This patient, Chhaya Cali, admitted to the OB room OB Post 116 for observation. Patient/family oriented to hospital policies and general routines including ID bracelet, bed and alarms, visiting hours, pain management, procedures, bathroom and other care routines, personal items, smoking policy, room service/diet, and visiting hours. Patient/Family are encouraged to report perceived risks to care and to ask questions if they do not understand what they are told or what they should do.
--- NOTE | 2021-09-12 08:39 | P.PNOB_ITS ---
OB - Triage/Final Diagnosis Visit Information Comments/Additional reasons for admission: I have assessed the risk for this patient, Chhaya Cali, and determined that she would benefit from observation care. Evaluation Laboratory results: Laboratory Tests 09/08/21 22:13 Urine Color Yellow Urine Appearance Cloudy H Urine pH 6.0 Ur Specific [place] 1.021 Urine Protein 1+ H Urine Glucose (UA) Negative Urine Ketones Negative Ur Blood (Man) Negative Urine Nitrate Negative Urine Bilirubin Negative Urine Urobilinogen Negative Ur Leukocyte Esterase Negative Urine RBC 6-10 H Urine WBC 4-6 H Ur Squamous Epith Cells Moderate H Urine Bacteria Trace Urine Mucus Rare Final Diagnosis (1) Pelvic pain affecting : Code(s): O26.899 - Other specified related conditions, unspecified trimester; R10.2 - Pelvic and perineal pain Status: Acute
== END 2021-09-08 23:23 | disposition home or self-care (01) ==
PROVIDERS: Admitting Provider Obstetrics & Gynecology; PCP Physician Assistant; Visit Provider Obstetrics & Gynecology
DX: O26.899 Other specified pregnancy related conditions, unspecified trimester (principal); R10.2 Pelvic and perineal pain; Z3A.00 Weeks of gestation of pregnancy not specified
CPT/HCPCS: 81001; 84112; 87086; 87088; G0378; G0379

== ENCOUNTER 2021-09-23 10:03 | Outpatient (CLI) | payer OTHER, SELFPAY ==
[2021-09-23 11:59] LABS: Hematocrit 30.7 % (37.0-47.0); Hemoglobin 10.4 g/dL (12.0-15.0); Mean Corpuscular HGB Conc 33.9 g/dl (32-36); Mean Corpuscular Hemoglobin 31.6 pg (26-34); Mean Corpuscular Volume 93.3 fl (80-100); Mean Platelet Volume 10.1 fl (7.4-10.4); Platelet Count Result 183 k/mm3 (150-375); Red Blood Count 3.29 M/mm3 (4.2-5.4); Red Cell Distribution Width 13.7 % (11.5-14.5); White Blood Count 7.7 K/mm3 (4.5-10.0)
[2021-09-23 12:17] LABS: Glucose 1 Hour PP 50gm Dose 113 mg/dL
[2021-09-23 12:59] LABS: HIV 1/2 Ab P24 Ag Result Negative (Negative)
[2021-09-23] MEDS: RHO(D) IMMUNE GLOBULIN 300 MCG/2 ML SYRINGE IM (15:48)
== END 2021-09-23 10:04 | disposition home or self-care (01) ==
PROVIDERS: PCP Physician Assistant; Visit Provider Obstetrics & Gynecology
DX: Z34.92 Encounter for supervision of normal pregnancy, unspecified, second trimester (principal); Z3A.00 Weeks of gestation of pregnancy not specified
CPT/HCPCS: 36415; 82947; 85027; 85461; 86703; 90384; 96372; G0432; J2790

== ENCOUNTER 2021-10-24 20:22 | Observation (INO) | payer OTHER, SELFPAY ==
[2021-10-24 20:22] VITALS: BMI 19.5
[2021-10-24 20:44] VITALS: BP 98/62; PULSE 96; TEMP 36.7
[2021-10-24 21:00] VITALS: BP 102/57; PULSE 87
[2021-10-24 21:15] VITALS: BP 99/57; PULSE 82
[2021-10-24 21:30] VITALS: BP 101/62; PULSE 86
[2021-10-24 21:45] VITALS: BP 102/66; PULSE 79
--- NOTE | 2021-10-27 10:00 | PM.OBTRLD ---
OB - Triage/Final Diagnosis Visit Information Reason for evaluation: threatened labor Comments/Additional reasons for admission: I have assessed the risk for this patient, Chhaya Cali, and determined that she would benefit from observation care.
== END 2021-10-24 22:05 | disposition home or self-care (01) ==
PROVIDERS: Admitting Provider Obstetrics & Gynecology; PCP Physician Assistant; Visit Provider Obstetrics & Gynecology
DX: O47.03 False labor before 37 completed weeks of gestation, third trimester (principal); Z3A.32 32 weeks gestation of pregnancy
CPT/HCPCS: G0378; G0379

== ENCOUNTER 2021-10-28 22:54 | Observation (INO) | payer OTHER, SELFPAY ==
--- NOTE | 2021-10-28 22:54 | OBADM ---
This patient, Chhaya Cali, admitted to the OB room OB Post 116 for observation. Pt states she has pelvic pressure and back pain started this AM and progressively getting more painful. PT has chronic UTI and on Macrobid. Patient/family oriented to hospital policies and general routines including ID bracelet, bed and alarms, visiting hours, pain management, procedures, bathroom and other care routines, personal items, smoking policy, room service/diet, and visiting hours. Patient/Family are encouraged to report perceived risks to care and to ask questions if they do not understand what they are told or what they should do.
[2021-10-28 23:09] VITALS: BP 96/72; PULSE 80; TEMP 37.6
[2021-10-28 23:15] VITALS: BP 92/64; PULSE 91
[2021-10-28 23:30] VITALS: BP 102/58; PULSE 94
[2021-10-28 23:30] LABS: Add Urine Microscopic? YES; Appearance Urine Clear (Clear); Bacteria Urine Trace /hpf; Bilirubin Urine Negative (Negative); Blood Urine Negative (Negative); Color Urine Yellow (Yellow); Glucose Urine UA Negative (Negative); Ketones Urine Negative (Negative); Leukocyte Esterase Ur Trace LEU/UL (NEGATIVE); Mucus Urine Rare /lpf; Nitrate Urine Negative (Negative); Protein Urine Negative (Negative); RBC Urine 0-2 /hpf (0-2); Specific Grav Ur 1.017 (1.001-1.035); Squamous Epithelial Cell Urine Many /hpf (Few); Urobilinogen Urine Negative mg/dL (<2.0); WBC Urine 0-3 /hpf (0-3)
[2021-10-28] MEDS: ACETAMINOPHEN 500 MG TABLET 1000 MG PO (23:31)
[2021-10-28 23:35] VITALS: BMI 19.5
--- NOTE | 2021-10-31 15:10 | P.PNOB_ITS ---
OB - Triage/Final Diagnosis Visit Information Reason for evaluation: threatened labor Comments/Additional reasons for admission: I have assessed the risk for this patient, Chhaya Cali, and determined that she would benefit from observation care. Evaluation Laboratory results: Laboratory Tests 10/28/21 23:11 Urine Color Yellow Urine Appearance Clear Urine pH 7.0 Ur Specific [place] 1.017 Urine Protein Negative Urine Glucose (UA) Negative Urine Ketones Negative Ur Blood (Man) Negative Urine Nitrate Negative Urine Bilirubin Negative Urine Urobilinogen Negative Ur Leukocyte Esterase Trace H Urine RBC 0-2 Urine WBC 0-3 Ur Squamous Epith Cells Many H Urine Bacteria Trace Urine Mucus Rare
== END 2021-10-29 00:07 | disposition home or self-care (01) ==
PROVIDERS: Admitting Provider Obstetrics & Gynecology; PCP Physician Assistant; Visit Provider Obstetrics & Gynecology
DX: O47.03 False labor before 37 completed weeks of gestation, third trimester (principal); Z3A.33 33 weeks gestation of pregnancy
CPT/HCPCS: 76816; 81001; 84112; 87086; A9270; G0378; G0379

== ENCOUNTER 2021-10-29 15:38 | Outpatient (CLI) | payer OTHER, SELFPAY ==
--- NOTE | ~2021-10-29 | US_ITS ---
US OB follow up DATE: 10/29/2021 16:13 INDICATION: growth assessment TECHNIQUE: Real-time imaging and Doppler analysis COMPARISON: 07/14/2020 obstetrical ultrasound FINDINGS: Live single intrauterine gestation, fetus in breech presentation, longitudinal lie. Anterior placenta. Amniotic fluid index measures 15.8 cm, within normal range. (5th percentile [place]: 8.3 cm; 95th percent ile [place]: 24.5 cm). heart rate of 108 bpm. Biparietal diameter 8.39 cm; 33 weeks 5 days Head circumference 30.88 cm; 34 weeks 3 days Abdominal circumference 26.30 cm; 30 weeks 3 days Femur length 6.51 cm; 33 weeks 4 days Composite age by Hadlock formula based upon the above measurements would be 33 weeks +/- 2 weeks 2 da ys with VALARIE of 12/17/2021 (compared to 08/14/2020 by 07/14/2020 obstetrical ultrasound). Estimated weight is 1902 +/- 2 185 g. Estimated weight GP: 9.4% Head circumference/abdominal circumference is above range of 1.17 (normal range 0.96-1.11). IMPRESSION: Abnormal head circumference/abdominal circumference ratio of 1.17; consider IUGR Reviewed, dictated and finalized at [facility]. Reviewed, dictated and finalized at location [facility]. CASER
== END 2021-10-29 15:39 | disposition home or self-care (01) ==
PROVIDERS: PCP Physician Assistant; Visit Provider Obstetrics & Gynecology
DX: O36.5999 Maternal care for other known or suspected poor fetal growth, unspecified trimester, other fetus (principal); Z3A.00 Weeks of gestation of pregnancy not specified
CPT/HCPCS: 76816

== ENCOUNTER 2021-11-15 22:24 | Observation (INO) | payer OTHER, SELFPAY ==
[2021-11-15 22:36] VITALS: BP 107/65; PULSE 86
[2021-11-15 23:45] VITALS: BMI 20.4
[2021-11-15 23:52] VITALS: TEMP 37.2
--- NOTE | 2021-11-16 00:01 | OBADM ---
This patient, Chhaya Cali, admitted to the OB room Labor/Delivery/Recovery 120 for observation. Patient/family oriented to hospital policies and general routines including ID bracelet, bed and alarms, visiting hours, pain management, procedures, bathroom and other care routines, personal items, smoking policy, room service/diet, and visiting hours. Patient/Family are encouraged to report perceived risks to care and to ask questions if they do not understand what they are told or what they should do.
--- NOTE | 2021-11-16 00:01 | PC.NURSE ---
2241- called, informed pt came in stating she has been nicola since this morning. SVE was a dimple and contractions are irregular. Order received to discharge pt home after an hr of monitoring if NST is reactive and no change in contractions. [id number]-Pt called out director external communications light and asked if she can go home, she states she's not feeling contractions and thinks the baby was just stretching.
--- NOTE | 2021-11-17 16:42 | PM.OBTRLD ---
OB - Triage/Final Diagnosis Visit Information Comments/Additional reasons for admission: I have assessed the risk for this patient, Chhaya Cali, and determined that she would benefit from observation care. Final Diagnosis (1) False labor: Code(s): O47.9 - False labor, unspecified Status: Acute
== END 2021-11-15 23:55 | disposition home or self-care (01) ==
PROVIDERS: Admitting Provider Obstetrics & Gynecology; PCP Physician Assistant; Visit Provider Obstetrics & Gynecology
DX: O47.03 False labor before 37 completed weeks of gestation, third trimester (principal); Z3A.36 36 weeks gestation of pregnancy
CPT/HCPCS: G0378; G0379

== ENCOUNTER 2021-11-18 07:49 | Outpatient (CLI) | payer OTHER, SELFPAY ==
--- NOTE | ~2021-11-18 | US_ITS ---
EXAMINATION: US OB follow up DATE: 11/18/2021 08:26 INDICATION: Maternal care for known or suspected poor growth during third trimester . TECHNIQUE: Real-time ultrasound of the pelvis was performed. The interpreting radiologist was not pre sent for the study. COMPARISON: None. FINDINGS: There is a single living fetus in vertex presentation. The placenta is anterior. heart rate is 131 beats per minute (bpm). The amniotic fluid index is 11.6 cm, which is normal (5th%-95%: 7.7-24. 9 cm at 36 weeks estimated gestational age). The following biometric data were obtained: BPD: 8.8 cm -> 35 weeks 3 days Head circumference: 31.5 cm -> 35 weeks 2 days Abdominal circumference: 32.9 cm -> 36 weeks 6 days Femur length: 6.7 cm -> 34 weeks 2 days These measurements are concordant. Head circumference to abdominal circumference ratio: 0.96 (normal range 0.93-1.10). Estimated weight: 2792 g (+/-) 419 g or 6 lbs. 2 oz. (+/-) 15 oz. IMPRESSION: 1. Single living fetus in vertex presentation with heart rate of 131 bpm. 2. Normal amniotic fluid index of 11.6 cm. 3. Estimated weight is 38th percentile by Hadlock criteria when 12/13/2021 is used as the estima kaylyn date of delivery (VALARIE). Please correlate with clinical information or earlier ultrasounds for mos t accurate VALARIE. Reviewed, dictated and finalized at location A. M INVESTIGATOR IMPRESSION: 1. Single living fetus in vertex presentation with heart rate of 131 bpm. 2. Normal amniotic fluid index of 11.6 cm. 3. Estimated weight is 38th percentile by Hadlock criteria when 12/13/2021 is used as the estimated date of delivery (VALARIE). Please correlate with clinica l information or earlier ultrasounds for most accurate VALARIE.
== END 2021-11-18 07:50 | disposition home or self-care (01) ==
PROVIDERS: PCP Physician Assistant; Visit Provider Obstetrics & Gynecology
DX: O36.5993 Maternal care for other known or suspected poor fetal growth, unspecified trimester, fetus 3 (principal); Z3A.35 35 weeks gestation of pregnancy
CPT/HCPCS: 76816

== ENCOUNTER 2021-11-30 15:34 | Observation (INO) | payer OTHER, SELFPAY | END 2021-11-30 18:25 | disposition home or self-care (01) | PROVIDERS: Admitting Provider Obstetrics & Gynecology; PCP Physician Assistant; Visit Provider Obstetrics & Gynecology | DX: O47.1 False labor at or after 37 completed weeks of gestation (principal); Z3A.38 38 weeks gestation of pregnancy | CPT/HCPCS: G0378; G0379 ==

== ENCOUNTER 2021-12-05 15:05 | Outpatient (CLI) | payer OTHER, SELFPAY ==
[2021-12-05 15:57] VITALS: BP 109/69; PULSE 111
[2021-12-05 16:01] VITALS: TEMP 37.2
== END 2021-12-05 15:55 | disposition home or self-care (01) ==
PROVIDERS: PCP Physician Assistant; Visit Provider Obstetrics & Gynecology
DX: O42.90 Premature rupture of membranes, unspecified as to length of time between rupture and onset of labor, unspecified weeks of gestation (principal); Z3A.00 Weeks of gestation of pregnancy not specified
CPT/HCPCS: 59025; 84112

== ENCOUNTER 2021-12-07 09:21 | Inpatient (IN) | payer OTHER, SELFPAY ==
[2021-12-07] VITALS (89 sets, daily range): BP systolic 76–122; BP diastolic 38–81; PULSE 45–147; RESP 18; TEMP 36.2–37.1; O2SAT 88–100; BMI 19.9
--- NOTE | 2021-12-07 09:54 | LDADM ---
This patient, Chhaya Cali, was admitted to Labor/Delivery/Recovery 105 on 12/07/21 at 09:21. Plans for labor, pain management and were discussed with patient. Patient/family oriented to hospital policies and general routines including ID bracelet, bed and alarms, visiting hours, pain management, procedures, bathroom and other care routines, personal items, smoking policy, room service/diet and guest tray routines, infant security routines, and visiting hours. Patient/Family are encouraged to report perceived risks to care and to ask questions if they do not understand what they are told or what they should do. See OBIX for further documentation.
[2021-12-07 10:09] LABS: Basophils Percent Auto 0.3 % (0.2-1.2); Eosinophils Absolute Auto 0.1 K/mm3 (0-0.3); Eosinophils Percent Auto 0.5 % (0-4.4); Hematocrit 31.6 % (37.0-47.0); Hemoglobin 10.5 g/dL (12.0-15.0); Immature Granulocyte Absolute 0.27 K/mm3 (0.00-0.031); Immature Granulocyte Percent A 2.2 % (0-0.5); Lymphocytes Absolute Auto 2.42 K/mm3 (0.9-3.2); Lymphocytes Percent Auto 19.5 % (18.3-44.2); Mean Corpuscular HGB Conc 33.2 g/dl (32-36); Mean Corpuscular Hemoglobin 29.2 pg (26-34); Mean Corpuscular Volume 87.8 fl (80-100); Mean Platelet Volume 10.9 fl (7.4-10.4); Monocytes Absolute Auto 0.8 K/mm3 (0.1-0.6); Monocytes Percent Auto 6.2 % (2.6-8.5); Neutrophils Absolute Auto 8.9 K/mm3 (1.3-6.7); Neutrophils Percent Auto 71.3 % (45.5-73.1); Platelet Count Result 195 k/mm3 (150-375); Red Cell Distribution Width 14.1 % (11.5-14.5); White Blood Count 12.4 K/mm3 (4.5-10.0)
[2021-12-07] MEDS: LACTATED RINGERS 1,000 ML 125 ML IV CONT ×2 (10:20→10:47)
[2021-12-07] MEDS: FAMOTIDINE 20 MG/2 ML VIAL IV PUSH (10:20)
[2021-12-07] MEDS: OXYTOCIN 30 UNITS/NS 500 ML 30 UNITS/500 ML BAG IV CONT (10:20)
--- NOTE | 2021-12-07 10:41 | WPDANESEPP ---
Anes - Eval Pre Procedure Procedure: Labor Epidural Date/Time: 12/07/21 10:41 Surgeon: Jose Preop Diagnosis: Labor Pain Pre Op Diagnosis: Labor Patient Data Age: 26 Gender: F Height: 1.6 m Weight: 51 kg Last Vital Signs Temp 37.0 C 12/07/21 10:30 Pulse 82 12/07/21 10:30 BP 113/68 12/07/21 10:30 Allergies Allergy/AdvReac Type Severity Reaction Status Date / Time No Known Allergies Allergy Mild Verified 12/07/21 08:00 Home Medications Medication Instructions Recorded Confirmed Type Gummies 2 tablet PO DAILY 07/14/20 12/07/21 History Laboratory Tests 12/07/21 12/07/21 09:44 09:44 WBC 12.4 K/mm3 H K/mm3 (4.5-10.0) RBC 3.60 M/mm3 L M/mm3 (4.2-5.4) Hgb 10.5 g/dL L g/dL (12.0-15.0) Hct 31.6 % L % (37.0-47.0) MCV 87.8 fl fl (80-100) MCH 29.2 pg pg (26-34) MCHC 33.2 g/dl g/dl (32-36) RDW 14.1 % % (11.5-14.5) Plt Count 195 k/mm3 k/mm3 (150-375) MPV 10.9 fl H fl (7.4-10.4) Immature Gran % (Auto) 2.2 % H % (0-0.5) Neut % (Auto) 71.3 % % (45.5-73.1) Lymph % (Auto) 19.5 % % (18.3-44.2) [place] % (Auto) 6.2 % % (2.6-8.5) Eos % (Auto) 0.5 % % (0-4.4) Baso % (Auto) 0.3 % % (0.2-1.2) Lymph # (Auto) 2.42 K/mm3 K/mm3 (0.9-3.2) [place] # (Auto) 0.8 K/mm3 H K/mm3 (0.1-0.6) Eos # (Auto) 0.1 K/mm3 K/mm3 (0-0.3) Baso # (Auto) 0.0 K/mm3 K/mm3 (0.0-0.1) Abs Immat Gran (auto) 0.27 K/mm3 H K/mm3 (0.00-0.031) Absolute Neuts (auto) 8.9 K/mm3 H K/mm3 (1.3-6.7) Absolute Nucleated RBC 0.0 K/mm3 K/mm3 (0.0-0.012) Nucleated RBC % 0.0 % % (0.0-0.2) RPR Pending Patient hx anesthesia problems: none Family hx anesthesia problems: none Results Review: All pre-operative results and documents have been reviewed as part of the pre-operative evaluation. [facility] Past Medical History Medical History ADHD Anxiety and depression Bipolar disorder OCD (obsessive compulsive disorder) Surgical History Surgical History History of gynecological procedure (04/10/13) nexplanon insertion History of gynecological procedure (04/08/16) nexplanon removal and insertion of new device History of gynecological procedure (04/09/19) nexplanon removal Family History Family History Sibling Autism disorder Duplication of chromosome 16p Grandparent Alcohol abuse Grandparent Cervical cancer Grandparent Lung cancer Social History Social History Smoking status: Never smoker Smoking end date: 04/16/18 Alcohol intake: never Substance use: never Substance use type: does not use Gender identity (if verbalized by the patient): Female Sexual Orientation (if Verbalized by the Patient): Straight or Heterosexual Spiritual care concerns: No Exam Day of Procedure 12/07/21 10:41 Patient weight: normal Heart: regular rate and rhythm Lungs: normal air movement Airway: Mallampati scale class II Neurological: alert and oriented
--- NOTE | 2021-12-07 12:38 | PM.IMHP ---
H&P: HPI History of Present Illness Date/Time: 12/07/21 12:38 Chhaya is a 26yo @ 39.0wks who presented to elective induction of labor in early labor. She was scheduled next week but has been having contractions on and off or the last couple days; has not be able to sleep due to the pain. she reports walk, sitting, standing all hurt-- she was wanting induction today to be able to get her epidural. She denies bleeding. She feels good movement. She is now comfortable with her epidural and contractions every 4-5 minutes on pitocin augmentation. She water was broken, clear @ 1235. She has had regular care. Her is complicated by: 1. Borderline personality disorder, anxiety, depression, OCD 2. Rh negative, s/p rhogam 3. Recurrent UTI's on macrobid Chief Complaint: contractions Review of Systems Review of Systems: All systems reviewed & are unremarkable except as noted in HPI and below (HPI) [facility] Past Medical History Medical History ADHD Anxiety and depression Bipolar disorder OCD (obsessive compulsive disorder) Surgical History Surgical History History of gynecological procedure (04/10/13) nexplanon insertion History of gynecological procedure (04/08/16) nexplanon removal and insertion of new device History of gynecological procedure (04/09/19) nexplanon removal Family History Family History Sibling Autism disorder Duplication of chromosome 16p Grandparent Alcohol abuse Grandparent Cervical cancer Grandparent Lung cancer Social History Social History Smoking status: Never smoker Smoking end date: 04/16/18 Alcohol intake: never Substance use: never Substance use type: does not use Gender identity (if verbalized by the patient): Female Sexual Orientation (if Verbalized by the Patient): Straight or Heterosexual Spiritual care concerns: No Meds Home Medications and Allergies Home Medications Medication Instructions Recorded Confirmed Type Gummies 2 tablet PO DAILY 07/14/20 12/07/21 History Allergies Allergy/AdvReac Type Severity Reaction Status Date / Time No Known Allergies Allergy Mild Verified 12/07/21 08:00 Vital Signs Vital Signs - 24 hr 12/07/21 09:45 12/07/21 10:15 12/07/21 10:30 Temperature 98.6 F Pulse Rate 88 100 82 Blood Pressure 116/77 95/64 L 113/68 Pulse Oximetry 12/07/21 10:45 12/07/21 10:50 12/07/21 10:51 Temperature Pulse Rate 100 81 Blood Pressure 120/81 122/75 Pulse Oximetry 88 L 100 94 12/07/21 10:53 12/07/21 10:55 12/07/21 10:56 Temperature Pulse Rate 87 73 Blood Pressure 107/58 L 108/56 L Pulse Oximetry 100 12/07/21 10:58 12/07/21 11:00 12/07/21 11:01 Temperature Pulse Rate 89 84 Blood Pressure 108/58 L 100/58 L Pulse Oximetry 100 12/07/21 11:03 12/07/21 11:05 12/07/21 11:06 Temperature Pulse Rate 82 77 Blood Pressure 109/46 L 102/57 L Pulse Oximetry 100 12/07/21 11:08 12/07/21 11:10 12/07/21 11:11 Temperature Pulse Rate 85 78 Blood Pressure 101/58 L 101/55 L Pulse Oximetry 100 12/07/21 11:13 12/07/21 11:15 12/07/21 11:16 Temperature Pulse Rate 78 88 Blood Pressure 102/59 L 101/58 L Pulse Oximetry 100 12/07/21 11:18 12/07/21 11:20 12/07/21 11:21 Temperature Pulse Rate 73 73 Blood Pressure 99/62 L 109/61 Pulse Oximetry 100 12/07/21 11:23 12/07/21 11:25 12/07/21 11:26 Temperature Pulse Rate 101 H 66 Blood Pressure 95/56 L 102/58 L Pulse Oximetry 100 12/07/21 11:28 12/07/21 11:30 12/07/21 11:31 Temperature Pulse Rate 86 80 Blood Pressure 91/65 L 108/64 Pulse Oximetry 100 12/07/21 11:33 12/07/21 11:35 12/07/21 11:36 Temperature Pulse Rate 67 84 Blood Pre
--- NOTE | 2021-12-07 12:44 | WPDHPUPDATE1 ---
History and Physical Update Update Date/Time: 12/07/21 12:44 History and Physical has been reviewed, including an updated exam of the patient. There are NO changes in the patient's condition. Risks, benefits, and alternatives have been discussed and questions answered. Patient agrees to proceed with procedure.
[2021-12-07] MEDS: ONDANSETRON INJ 4 MG/2 ML VIAL IV PUSH ×2 (14:03→20:04)
--- NOTE | 2021-12-07 17:44 | PM.OBPNLAB ---
Pain Control Date/time seen: 12/07/21 17:44 Pain control: epidural Pelvic Exam Dilation (cm): 4 Effacement (%): 90 station: -1 Amniotic membrane status: Ruptured (AROM, clear 1235) Contractions Monitor mode: Internal (placed this exam) Contraction frequency: 1 (-5) Contraction pattern: Irregular Status status: Category l Assessment and Plan Pitocin rate (mU/min): 12 Plan: continuous present management
--- NOTE | 2021-12-07 19:30 | P.PCNOB_ITS ---
OB - Delivery Note Procedure Delivery date: 12/07/21 Events: Elective Induction of Labor Induction method: Per Pitocin Protocol Delivery augmentation: Rupture of Membranes Delivery monitor: External FHT and Internal Uterine Route of delivery: Laceration Description: None Specimen: No Quantitative Blood Loss (ml): 150 Anesthesia type: Epidural Disposition: floor [place] Baby Date of : 12/07/21 Time of : 19:18 Weeks of gestation at delivery: 39 Infant gender: Male Weight (pounds): 6 Weight (ounces): 7 presentation: vertex position: Right Occiput Anterior Placenta delivery description: Expressed Cord Vessel Description: 3 Vessels and Delayed Cord Clamping score one minute: 8 score five minutes: 9 Narrative: Chhaya rapidly progressed to complete dilation with strong desire to push. She pushed for 3 contractions and delivered the infant's head over intact perineum. No nuchal cord was palpated. She easily delivered the infant's shoulders and body without complication. The infant was immediately placed skin to skin and cried after stimulation. Delayed cord clamping was performed. The umbilical cord was then clamped and cut. A segment of cord was collected for cord gases. The remaining cord blood was collected for typing. With Pitocin running and gentle downward traction on the cord, the placenta delivered without complications. Bimanual massage was performed and good uterine tone with minimal bleeding was noted. Patient was examined and no lacerations were identified. Sponge, lap, instrument, and needle counts were correct at the end of the procedure. Mom and baby were left bonding in the birthing suite in a stable condition. [facility] Delivery Billing Delivery Delivery: Delivery Charge
[2021-12-07] MEDS: OXYTOCIN 30 UNITS/NS 500 ML 30 UNITS/500 ML BAG 125 UNITS IV CONT (19:52)
[2021-12-07] MEDS: WITCH HAZEL 40 PADS 1 PAD TOPICAL (20:32)
[2021-12-07] MEDS: IBUPROFEN 600 MG TABLET PO (20:32)
[2021-12-07] MEDS: BENZOCAINE 20% AER SPR (*SP) 56 GM CAN 1 SPRAY TOPICAL (20:32)
--- NOTE | 2021-12-08 02:23 | OBPPTRN ---
12/07/2021 at 2311. Patient transferred to post room #292 via wheelchair. Support person present. Oriented to unit, room, information board, rooming in, admission packet and security measures. Patient verbalizes understanding.
[2021-12-08 04:25] VITALS: BP 86/47; PULSE 69; RESP 16; TEMP 36.8; O2SAT 98
[2021-12-08 04:58] LABS: Hematocrit 28.5 % (37.0-47.0); Hemoglobin 9.4 g/dL (12.0-15.0)
[2021-12-08 06:45] LABS: Rapid Plasma Reagin Non-Reactive (NonReactive)
[2021-12-08 08:00] VITALS: BP 100/64; PULSE 64; RESP 18; TEMP 37
[2021-12-08] MEDS: DOCUSATE SODIUM 100 MG CAPSULE PO ×2 (08:13→17:25)
[2021-12-08] MEDS: IBUPROFEN 600 MG TABLET PO ×3 (08:13→23:42)
[2021-12-08] MEDS: MULTIVIT/MIN/PREN/FOL AC/IRON TABLET 1 TAB PO (08:14)
[2021-12-08] MEDS: POLYSACCHARIDE IRON COMPLEX 150 MG CAPSULE PO ×2 (08:14→17:25)
--- NOTE | 2021-12-08 09:15 | PC.NURSE ---
0745 - Introductions were made and mother led the discussion of her desires to feeding her baby. Reviewed handwashing to prevent infection before and after taking care of her baby. Mother verbalizes she is able to independently latch infant. Discussed how to watch for early feeding cues, place skin to skin, then feeding baby when is ready or every 2-3 hours. was able to maintain effective latch without discomfort to mother at 0430. Encouraged skin to skin after mother goes to the restroom and gets pain medication. Mother has verbalized understanding watching for feeding cues for responsive feeding or how to stimulate infant to initiate feeding when she sees feeding cues, 8-12 times in 24 hours approximately every 2-3 hours from the start of the last feeding or she has discomfort with nursing. Reported to primary RN.
--- NOTE | 2021-12-08 09:20 | WPDANLDPN2 ---
Anes-Prog Note L&D Date/Time: 12/08/21 09:20 Comfortable throughout: labor and delivery Neuraxial method: epidural Epidural/Spinal procedure site: clean & non-tender Neuro status: Neuro function grossly intact. Cardiovascular status: normal Respiratory status: normal Airway patency: baseline Mental status: baseline Post-Op hydration status: normal Vital Signs: Last Vital Signs Temp 98.3 F 12/08/21 04:25 Pulse 69 12/08/21 04:25 Resp 16 12/08/21 04:25 BP 86/47 L 12/08/21 04:25 Pulse Ox 98 12/08/21 04:25 Pain score (VAS): 0 I/O: Intake & Output 12/07/21 12/08/21 12/08/21 23:59 07:59 15:59 Intake Total 500 Balance 500 Post-procedural complaints: none Patient feedback: Patient satisfied with anesthetic care. pt verbalized pain with labor at top of stomach. verbalized comfort with delivery. spoke with labor nurse Nieves who states pt was experiencing symptomatic hypotension limiting dosing.
--- NOTE | 2021-12-08 10:24 | PC.NURSE ---
[id number] Consulted with patient per request due to mother unable to stimulate to breastfeed. Mother is knowledgeable with and works well with her infant. She states that her nipples are sore related to infant pulling back and nursing on the nipple at the 0430 feeding. Reviewed feeding cues, frequencies, duration of feedings, feeding elimination flow sheet, and signs of adequate intake. Demonstrated stimulation techniques to wake for feeding with placing infant skin to skin. Reviewed positioning/alignment, holding breast and asymmetrical latch on. Infant was able to latch effectively with a deeper latch, nursed eagerly, with steady draws and occasional swallowing noted. Reviewed signs of an optimal latch, effective nursing and suck swallow ratio. was able to maintain latch without discomfort to mother. Nipple care reviewed with latching, positioning and good handwashing. Mother voiced understanding to call out for RN assistance if she is unable to latch infant for feeding, if she has discomfort with nursing, feeding infant with response to feeding cues and initiated 8-12 times in 24 hours 2-3 hours from start of last feeding. Reported to will ESTES.
[2021-12-08] MEDS: BENZOCAINE 20% AER SPR (*SP) 56 GM CAN 1 SPRAY TOPICAL (11:39)
[2021-12-08] MEDS: WITCH HAZEL 40 PADS 1 PAD TOPICAL (11:40)
[2021-12-08 12:00] VITALS: BP 98/58; PULSE 59; RESP 16; TEMP 36.6
--- NOTE | 2021-12-08 14:36 | PC.NURSE ---
1350 - Consulted with patient to assess needs related to . Mother led conversation with her experience with feeding baby so far. Mother works well with her . Discussed stimulating infant with skin to skin, hand expressing colostrum, touch and talking to infant to encourage eating at the breast. Reviewed positioning and alignment, supporting breast, off-centered (asymmetrical latch) and leading with the chin with big open wide gape. Infant latched optimally to the right breast in football position. Education given to mother of how to visualize suck/swallow ratios and drinking at the breast. Infant was able to maintain latch without discomfort to mother. Nipple care, comfort and healing with warm, wet washcloth to rinse breast and leave to air-dry. Mother voiced understanding responding to feeding cues, may need to stimulating infant approximately 2-3 hours from the start of the last feeding, calling for assistance if the doesn?t latch or there is discomfort . Reported to primary RN.
[2021-12-08 16:00] VITALS: BP 100/56; PULSE 82; RESP 20; TEMP 36.9
--- NOTE | 2021-12-08 17:17 | P.PNOB_ITS ---
OB - PN: Subj Subjective Date/time seen: 12/08/21 17:17 Narrative: PPD#1 Chhaya reports doing well today. Her bleeding is very light. Her pain is controlled. She is tolerating regular diet, voiding, passing gas, and ambulating without issues. She is breast feeding. She would like her son circumcised. She would like to go home tomorrow morning. OB - PN: Obj Data Labs CBC & Chem 7: 12/08/21 04:25 Labs: Laboratory Results - last 24 hr 12/07/21 12/08/21 09:44 04:25 Hgb 9.4 L Hct 28.5 L RPR Non-reactive OB - PN A/P Assessment and Plan (1) Normal vaginal delivery: Code(s): O80 - Encounter for full-term uncomplicated delivery Status: Acute Plan day: 1 Plan: routine care and discharge home (tomorrow) Comments: - Pelvic rest; take meds as prescribed - ER return precautions: fever, n/v/abd pain, bleeding, HTN Time Spent With Patient Time: Total time spent is greater than 50% in coordination of care (as d ocumented) at patient's floor/unit and/or counseling patient: Review of Systems Constitutional: Constitutional: Denies chills, Denies fever(s) and Denies headache(s) Eyes: Eyes: Denies change in vision ENT: Denies dizziness and Denies headache(s) Cardiovascular: Cardiovascular: Denies chest pain, Denies palpitations and Denies dyspnea Respiratory: Respiratory: Denies cough and Denies dyspnea Gastrointestinal: Gastrointestinal: Denies nausea and Denies vomiting Neurologic: Denies dizziness and Denies headache(s) Endocrine: Endocrine: Denies palpitations Exam Const: General: cooperative, comfortable and no acute distress Orientation/consciousness: patient oriented x3 Resp: Effort & Inspection: normal respiratory effort Auscultation: clear to auscultation bilaterally Cardio: Rate: regular rate GI: Inspection: non-distended GI Palp: No abdominal tenderness and Yes Soft to palpation Auscultation: normal bowel sounds : Other: fundus firm Skin: General skin exam: normal color Neuro: General: patient oriented x3 Extrem: General: normal to inspection Psych: Appearance: grossly normal Affect: normal affect Attitude: cooperative
[2021-12-08 20:45] VITALS: BP 100/56; PULSE 59; RESP 16; TEMP 36.7; O2SAT 100; O2SAT 99
[2021-12-09 03:23] VITALS: BP 108/58; PULSE 75; RESP 16; TEMP 36.9; O2SAT 99
[2021-12-09] MEDS: BENZOCAINE 20% AER SPR (*SP) 56 GM CAN 1 SPRAY TOPICAL (07:43)
[2021-12-09] MEDS: WITCH HAZEL 40 PADS 1 PAD TOPICAL (07:43)
[2021-12-09] MEDS: DOCUSATE SODIUM 100 MG CAPSULE PO (07:44)
[2021-12-09] MEDS: POLYSACCHARIDE IRON COMPLEX 150 MG CAPSULE PO (07:44)
[2021-12-09] MEDS: IBUPROFEN 600 MG TABLET PO (07:44)
[2021-12-09] MEDS: MULTIVIT/MIN/PREN/FOL AC/IRON TABLET 1 TAB PO (07:45)
[2021-12-09 07:56] VITALS: BP 114/73; PULSE 59; RESP 17; TEMP 36.6; O2SAT 99
--- NOTE | 2021-12-09 08:00 | PC.NURSE ---
On 12/09/21, the student, Lisha Draper, provided care and completed [facility] documentation on this patient. I have reviewed the student's documentation and agree with the findings.
--- NOTE | 2021-12-09 08:29 | PC.NURSE ---
0805 - Introductions were made and mother led the conversation with regards to her experience feeding her baby so far. Reminded parents to use good handwashing to prevent infection. Infant has had appropriate feedings in the past 24 hours and meets the outcomes for weight, output and jaundice. Mother states she feels confident to continue effectively /pumping/supplementing with human milk with her infant at home. Reviewed production of human milk, transition of milk, signs of adequate intake and engorgement prevention/relief and when to call the care provider using the mom and baby guide. Reviewed medications mother is taking with information provided by [facility], community resources and outpatient services as listed in the mom and baby guide/[facility] website. Reinforced watching for feeding cues with responsive feeding and how to stimulate to initiate feeding three hours from the start of the last feeding. Mother voiced understanding of information shared. Reported to primary RN.
--- NOTE | 2021-12-09 09:52 | PC.NURSE ---
Self care and infant care discharge instructions given including follow up visit date and time. Mother comfortable with discharge. Excited to get home and see her other son. at side. Very pleasant and cooperative.
--- NOTE | 2021-12-09 12:47 | PC.NURSE ---
0845 - RN assisted mother with a deeper latch to optimally feed her to the right breast in football position. Infant maintained latch without discomfort to mother and a effective suck/swallow ratio was visualized and heard. Mother voiced understanding of what to watch for and and when to call a provider sharing with the resource of the mom and baby guide. Reported to primary RN.
[2021-12-10 11:35] VITALS: BP 96/66; PULSE 68; RESP 20; TEMP 37; O2SAT 100
--- NOTE | 2021-12-10 18:52 | PM.OBDSVD ---
DS: Admitting Diagnosis Discharge Date 12/09/21 Admitting Diagnosis induction of labor DS: Discharge Diagnosis Discharge Diagnosis (1) Normal vaginal delivery: Code(s): O80 - Encounter for full-term uncomplicated delivery Status: Acute OB - DS: Summary OB Procedures : NST and Ultrasound OB Procedures Intrapartum: Spontaneous Vag Delivery OB Procedures: : None Peripartum Data Infant Delivery Method: Natural Vaginal Laceration Description: None complications: none [place] 1: Gender: Male Disposition of : home Status at Discharge Functional status at discharge: independent ambulation Overall status at discharge: patient is back to baseline Time Spent with Patient Time attestation: Total time spent providing and/or coordinating discharge services: Time spent: Less than 30 minutes Exam Const: General: cooperative, comfortable and no acute distress Orientation/consciousness: patient oriented x3 Resp: Effort & Inspection: normal respiratory effort Auscultation: clear to auscultation bilaterally Cardio: Rate: regular rate GI: Inspection: non-distended GI Palp: No abdominal tenderness and Yes Soft to palpation Auscultation: normal bowel sounds : Other: fundus firm Skin: General skin exam: normal color Neuro: General: patient oriented x3 Extrem: General: normal to inspection Psych: Appearance: grossly normal Affect: normal affect Attitude: cooperative Discharge Plan Discharge Attending physician on discharge: Annie Greco Discharging Clinician: Annie Greco Anticipated Discharge Date/Time: 12/09/21 08:00 Patient Disposition: Home, Self-Care Activity: may shower, may drive after 2 weeks and pelvic rest Diet: as tolerated and regular Discharge Instructions: Education: Mom and Baby Guide Given to: Mother Follow-Up: Call your delivering provider's office for an appointment to be seen in: 4 Weeks Mom and baby should come to the [facility] for the follow-up appointment. Appointment Date/Time:November at 11:00 am What to expect at your follow-up visit: Blood Pressure Check Physical Assessment Call [phone] if you are unable to keep your appointment time. BREAST CARE: * Wear a snug supportive bra. * For engorgement discomfort: Breast Feeding: * Apply warm moist washcloths * Express milk as needed to relieve engorgement * Wear loose clothing * For sore nipples: * Identify correct latch-on * Apply warm moist washcloths before and after nursing * Air dry nipples after nursing * May apply Lansinoh cream to nipples * Until bleeding stops, use your fanta bottle after urinating * Change your pad frequently throughout the day * You may take sitz baths several times a day (fill your bathtub with warm water and soak for 20 minutes.) Do NOT bathe in the water * No tub baths until seen by your physician - You may shower ACTIVITY: * Rest as much as possible. * Do not exercise or lift anything heavier than your baby (such as laundry or other children.) * Avoid stairs or driving as much as possible. * Do not put anything into the vagina. No douching, tampons, or sexual activity until seen by physician. NOTIFY PHYSICIAN IF YOU HAVE ANY QUESTIONS OR IF ANY OF THE FOLLOWING SYMPTOMS OCCUR: * If your episiotomy or incision becomes red, swollen, or more painful than what you have experienced in the hospital. * If your vaginal bleeding becomes foul smelling. * If your vaginal bleeding becomes more heavy than a period or if your bleeding changes from pink to bright red. However, you may pass an occasional walnut-sized clot once or twice for the first week . * If you experience a sharp, shooting pain in you calves. * If you discover a hard, reddened area on your breast or if you experience flu-like s
== END 2021-12-09 11:00 | disposition home or self-care (01) | DRG 560 ==
LOC: ANHOB2 12-08 17:21 → ANHLDR 12-10 09:42 → ANHOB2 12-10 09:42
PROVIDERS: Admitting Provider Obstetrics & Gynecology; PCP Physician Assistant; Visit Provider Obstetrics & Gynecology
DX: O36.0930 Maternal care for other rhesus isoimmunization, third trimester, not applicable or unspecified (principal); Z37.0 Single live birth; Z3A.39 39 weeks gestation of pregnancy
CPT/HCPCS: 36415; 85014; 85018; 85025; 86592; 86850; 86880; 86900; 86901; 86902; A9270; J2405; J2590; J2795; J7120

== ENCOUNTER 2022-01-22 06:28 | Emergency (ER) | payer OTHER, SELFPAY ==
--- NOTE | ~2022-01-22 | XR_ITS ---
EXAMINATION: XR chest 2V DATE: 01/22/2022 07:00 INDICATION: Chest pain. TECHNIQUE: Frontal and lateral views of the chest were obtained. COMPARISON: None. FINDINGS: The chest demonstrates clear lungs without pneumonia, pleural effusion, or pneumothorax. Th e heart size is normal. IMPRESSION: 1. No acute cardiopulmonary disease. Reviewed, dictated and finalized at location A.
--- NOTE | ~2022-01-22 | CT_ITS ---
EXAMINATION: CTA chest PE protocol DATE: 01/22/2022 07:52 INDICATION: Chest pain. Cough. TECHNIQUE: Computed tomography angiography (CTA) of the chest was performed with 100 mL Omnipaque-350 intravenous contrast timed to evaluate the pulmonary arteries. Coronal maximum intensity projection 3D-reconstructions were created by the technologist. Automated exposure control and iterative reconst ruction technique were employed. The dose-length product was 147.62 mGy-cm. COMPARISON: Chest 2 views 01/22/2022 FINDINGS: There is mild scarring at the lung apices. No pleural effusion. The heart size is normal. N o pericardial effusion. There is no pulmonary embolus. The bones are unremarkable. IMPRESSION: 1. No pulmonary embolus. Reviewed, dictated and finalized at location A. IMPRESSION: 1. No pulmonary embolus.
[2022-01-22 06:35] VITALS: BP 107/54; PULSE 68; RESP 16; TEMP 36.1; O2SAT 100
--- NOTE | 2022-01-22 06:36 | ECG_ITS ---
Measurements Intervals [place] Rate: 48 P: 38 AK: 152 QRS: 72 QRSD: 102 T: 35 QT: 456 QTc: 408 Interpretive Statements SINUS BRADYCARDIA WITH SINUS ARRHYTHMIA INCOMPLETE RIGHT BUNDLE BRANCH BLOCK [90+ ms QRS DURATION, TERMINAL R IN V1/V2, 40+ ms S IN I/aVL/V4/V5/V6] BORDERLINE ECG NO PREVIOUS ECG AVAILABLE FOR COMPARISON Electronically Signed On 01-22-2022 11:13:44 CDT by Иван Lopez M.D.
[2022-01-22 06:40] VITALS: PULSE 53
[2022-01-22 06:50] LABS: Basophils Absolute Auto 0.1 K/mm3 (0.0-0.1); Basophils Percent Auto 0.5 % (0.2-1.2); Eosinophils Absolute Auto 0.2 K/mm3 (0-0.3); Eosinophils Percent Auto 1.4 % (0-4.4); Hemoglobin 12.9 g/dL (12.0-15.0); Immature Granulocyte Absolute 0.11 K/mm3 (0.00-0.031); Lymphocytes Absolute Auto 3.94 K/mm3 (0.9-3.2); Lymphocytes Percent Auto 35.9 % (18.3-44.2); Mean Corpuscular HGB Conc 32.3 g/dl (32-36); Mean Corpuscular Hemoglobin 28.4 pg (26-34); Mean Corpuscular Volume 87.9 fl (80-100); Mean Platelet Volume 10.3 fl (7.4-10.4); Monocytes Absolute Auto 0.5 K/mm3 (0.1-0.6); Monocytes Percent Auto 4.6 % (2.6-8.5); Neutrophils Absolute Auto 6.2 K/mm3 (1.3-6.7); Neutrophils Percent Auto 56.6 % (45.5-73.1); Platelet Count Result 237 k/mm3 (150-375); Red Blood Count 4.55 M/mm3 (4.2-5.4)
[2022-01-22 07:00] LABS: Alanine Aminotransferase 18 U/L (4-35); Albumin Level 4.1 g/dL (3.5-5.1); Alkaline Phosphatase 65 U/L (38-126); Anion Gap 7 mmol/L (8-16); Aspartate Amino Transferase 23 U/L (14-36); Bilirubin,Total 0.7 mg/dL (0.2-1.3); Blood Urea Nitrogen 19 mg/dL (7-17); Calcium 8.5 mg/dL (8.4-10.2); Carbon Dioxide 26 mmol/L (22-30); Chloride 104 mmol/L (98-107); Estimated CRCL calculation 60 ml/min; Estimated Glomerular Filt Rate > 60; Glucose 96 mg/dL (65-110); Lipase 236 U/L (23-300); Potassium 3.5 mmol/L (3.4-5.0); Sodium 137 mmol/L (137-145)
[2022-01-22 07:02] LABS: Partial Thromboplastin Time 27.4 SECONDS (22.3-36.8)
[2022-01-22 07:11] LABS: Troponin I < 0.012 ng/mL (0.000-0.034)
--- NOTE | 2022-01-22 07:11 | ED.CHESTPAIN ---
HPI - Chest Pain General Chief Complaint: Chest Pain Stated Complaint: chest pain Time Seen by Provider: 01/22/22 07:02 Source: RN notes reviewed History of Present Illness HPI narrative: Patient presents emergency department from home for chest pain. Patient states she awoke with chest pain 5 AM this morning with pain in her right lower chest that radiates around to her right shoulder blade. Pain is described as sharp and stabbing and is worse with deep inspiration and coughing. Patient states she has had an upper respiratory infection for the past 3 weeks with a cough has been productive of sputum states she took ibuprofen at home for the pain with some improvement she denies any fevers or chills abdominal pain nausea vomiting she does note some mild shortness of breath Related Data Allergies Allergy/AdvReac Type Severity Reaction Status Date / Time No Known Allergies Allergy Mild Verified 01/06/22 17:54 Review of Systems Review of Systems: Gen.: Denies fevers or chills ENT: Denies congestion Respiratory: Reports shortness of breath and cough CV: See HPI GI: Denies abdominal pain nausea, emesis or diarrhea Musculoskeletal: Denies back pain or muscle pain Neuro: Denies numbness, tingling, weakness or focal weakness Skin: Denies rash Except as documented, all other systems reviewed and negative [facility] Past Medical History Medical History ADHD Anxiety and depression Bipolar disorder OCD (obsessive compulsive disorder) Surgical History Surgical History History of gynecological procedure (04/10/13) nexplanon insertion History of gynecological procedure (04/08/16) nexplanon removal and insertion of new device History of gynecological procedure (04/09/19) nexplanon removal Family History Family History Sibling Autism disorder Duplication of chromosome 16p Grandparent Alcohol abuse Grandparent Cervical cancer Grandparent Lung cancer Social History Social History Smoking status: Never smoker Smoking end date: 04/16/18 Alcohol intake: never Substance use: never Substance use type: does not use Gender identity (if verbalized by the patient): Female Sexual Orientation (if Verbalized by the Patient): Straight or Heterosexual Spiritual care concerns: No Exam Narrative: APPEARANCE: No acute distress, nontoxic, resting in bed EYES: EOMI HEENT: Normocephalic, atraumatic, OMM RESPIRATORY: No respiratory distress Clear to auscultation bilaterally with no rhonchi wheezing or rales. CARDIOVASCULAR: Regular rate and rhythm without murmurs rubs or gallops. Chest: Tender palpation over the right lower chest pain increased with deep inspiration ABDOMINAL: Soft, nontender, nondistended, no rebound or guarding MUSCULOSKELETAl: Moves all extremities. No clubbing, cyanosis or edema. NEURO: Awake and alert. Following commands, speech normal, no focal deficits SKIN:: Warm, dry. No rashes lesions or abrasions PSYCHIATRIC: Normal affect/mood, Course Course Emergency Course: Patient states chest pain is resolved with medication Discussed with patient results of workup and diagnosis. Discussed need for follow-up with primary care, proper use of medication, and reasons to return to the emergency department. Patient understands and agrees to current treatment plan Vital Signs Vital signs: Vital Signs Temperature 97 F L 01/22/22 06:35 Pulse Rate 68 01/22/22 06:35 Respiratory Rate 16 01/22/22 06:35 Blood Pressure 107/54 L 01/22/22 06:35 Pulse Oximetry 100 01/22/22 06:35 Temperature 97 F L 01/22/22 06:35 Pulse Rate 53 L 01/22/22 06:40 Respiratory Rate 16 01/22/22 06:35 Blood Pressure 107/54 L 01/22/22 06:35 Pulse Oximetry 100 01/22/22 06:35 MDM - Chest Pain M
[2022-01-22 07:20] LABS: D Dimer 0.71 ug/mL (<0.48)
[2022-01-22 09:45] LABS: Troponin I < 0.012 ng/mL (0.000-0.034)
[2022-01-22 10:06] VITALS: BP 100/56; PULSE 47; RESP 16; O2SAT 100
== END 2022-01-22 10:07 | disposition home or self-care (01) ==
PROVIDERS: Emergency Medicine; Emergency Provider Emergency Medicine; PCP Physician Assistant
DX: R07.89 Other chest pain (principal); R00.1 Bradycardia, unspecified; I45.10 Unspecified right bundle-branch block
CPT/HCPCS: 36415; 71046; 71275; 80053; 81025; 83690; 84484; 85025; 85380; 85610; 85730; 93005; 96365; 99284; J0131; Q9967

== ENCOUNTER 2022-02-04 15:36 | Outpatient (CLI) | payer OTHER, SELFPAY ==
--- NOTE | ~2022-02-04 | US_ITS ---
EXAMINATION: US pelvic complete DATE: 02/04/2022 16:36 INDICATION: Pelvic and perineal pain TECHNIQUE: Multiple transabdominal and endovaginal sonographic images of the pelvis were obtained. COMPARISON: None. FINDINGS: The uterus measures 11.2 x 5.5 x 4.3 cm. The endometrial complex measures 12 mm. The right ovary measures 1.8 x 1.3 x 1.2 cm. The left ovary measures 2.0 x 1.5 x 1.3 cm. There is normal vascul ar flow in the ovaries. There is no free fluid in the pelvis. IMPRESSION: 1. No sonographic correlate for the patient's symptoms. Reviewed, dictated and finalized at location F.
== END 2022-02-04 15:37 | disposition home or self-care (01) ==
PROVIDERS: PCP Physician Assistant; Visit Provider Obstetrics & Gynecology
DX: R10.2 Pelvic and perineal pain (principal)
CPT/HCPCS: 76856